=== PATIENT | female | born 1970 | race Caucasian/White ===

== ENCOUNTER 2016-11-18 09:54 | Day surgery (SDC) | payer MEDICARE, MEDICAID ==
[2016-11-18] VITALS (8 sets, daily range): BP systolic 102–139; BP diastolic 62–84; PULSE 71–82; RESP 14–19; O2SAT 93–99
[~2016-11-18] VITALS: Ht 177.8 cm; Wt 97.1 kg
[~2016-11-18 09:54] MED LIST: ACET1000 IR; ACET325T51 PO; ASCO100089 PO; Acetaminophen IV 1,000 mg IV ONE; BENEDRYL PO; BISA10EN RC; BO60S RECTAL; CHOL400T30 PO; CIDE600C PO; CRAN400T4 PO; DOCU-41 PO; FERR-83 PO; HYDR2TAB28 PO; IBUP-1827 PO; LACT460C PO; LEVO125T6 PO; Lactated Ringer's 1,000 ML IV SCH; MAGN400T4 PO; METH5TAB88 PO; METHENAMINE HIPPURATE PO; MULT-1018 PO; NYST1POW23 TOPICAL; OMEP20TA86 PO; OXYB10TA PO; PRED50TA PO; SENN8.6C6 PO; SENSICARE TP; SILV400C TP; VIT1TABL83 PO; VITAMIN E PO; [UNRECOGNIZED DRUG - OTHER] TP
[2016-11-18] MEDS ORDERED: Dexamethasone 4 mg/mL Inj ONE (09:55)
[2016-11-18] MEDS ORDERED: Propofol 10,000 mCg/mL 20 mL Inj ONE (09:55)
[2016-11-18] MEDS ORDERED: Ondansetron 2 mg/mL 2 mL Inj ONE (09:55)
--- NOTE | 2016-11-18 11:25 | PCM.HPANE ---
Patient Data Date of Service: Nov 18, 2016 Surgeon Admitting Provider: Attending Provider:Semaj Mccarthy MD Primary Care Physician:Uriah Grove MD Other Provider:Nazia Florentino Anesthesia Reason for Visit Calculus Of Kidney Ht/WT & BMI Height (Feet): 5 Height (Inches): 10 Weight (Kilograms): 94.34 Body Mass Index 29.00 Allergies Coded Allergies: onabotulinumtoxinA (Verified Allergy, Severe, caused kidney function issues, 01/01/16) oxycodone HCl (Verified Allergy, Severe, delirium /hallucinations, 01/01/16 ) silver (Verified Adverse Reaction, Intermediate, 02/10/16) blisters and redness Past Anesthesia History Anesthesia History: Positive for:: Anesthesia Reactions, Denies:: Abnormal Airway, Difficult Intubation, Fam Anesthesia Reaction, Fam Malignant Hypertherm, Malignant Hyperthermia Diabetes History Hx Diabetes?: No MRSA MRSA: No Medications Hypertension Medication: No Home Meds Incl Beta Kameron: No Active Scripts Belladonna Alkaloids/Opium (Belladonna-Opium 16.2-60 Supp)60 Mg Supp60 Mg RECTAL Q6 3 Days Prov:Nirav Chen DO 02/11/16 Reported Medications Nystatin 1 Each Powder.ea.60 Gr TOPICAL BID PRN east 02/10/16 Oxybutynin Chloride ER 10 Mg Tab.er.2410 Mg PO DAILY Ref 0 01/01/16 Cider Vinegar (Apple Cider Vinegar)600 Mg Vlzzqdj260 Mg PO TID 01/01/16 Vit B Comp/C/FA/Iron/Vit E (Vitamin B Complex Tablet)1 Each Tablet1 Each PO DAILY 12/26/15 Multivitamin (Multi Vitamin Daily)1 Each Tablet1 Each PO DAILY 30 Days Ref 0 12/26/15 Docusate Sodium (Colace)100 Mg Uqxcgvs370 Mg PO DAILY PRN For Constipation Ref 0 12/26/15 Cranberry Fruit (Cranberry)400 Mg Vbkqfh432 Mg PO DAILY 12/26/15 Bisacodyl (Bisacodyl Rectal)10 Mg/30 Ml Enema10 Mg RC DAILY 12/26/15 Acetaminophen 325 Mg Wbhkab070 Mg PO Q4H PRN For Pain Ref 0 12/26/15 Acetic Acid 1,000 Ml Irrig.soln30 Ml IR BID SUPRAPUBIC CATH 04/23/15 Lactobacillus Acidophilus (Florajen)460 Mg Opsmdwd695 Mg PO DAILY 04/23/15 [[employer] Butt Cream] No Conflict Check1 Applic TP TID PRN PRN 04/23/15 Ibuprofen 600 Mg Lmmmfp327 Mg PO TID PRN For Pain Ref 0 04/23/15 [Sensicare Oint] No Conflict Check1 Applic TP TID PRN PRN 04/23/15 [Benedryl] No Conflict Check25 Mg PO Q6H PRN PRN 04/23/15 Silver Sulfadiazine 400 Gm Cream..g.400 Gm TP BID PRN PRN 04/23/15 Sennosides (Senna)8.6 Mg Afdjtid68.2 Mg PO DAILY PRN 09/25/14 Omeprazole 20 Mg Tablet.dr20 Mg PO DAILY 30 Days 09/25/14 Methylphenidate 5 Mg Tablet2.5 Mg PO AM 30 Days Ref 0 09/25/14 Magnesium Oxide 400 Mg Dcvraa159 Mg PO DAILY 09/25/14 Levothyroxine 125 Mcg Uqdqdf439 Mcg PO DAILY For Thyroid Replacement #30 TABLET Ref 0 09/25/14 Hydromorphone 2 Mg Tablet2 Mg PO Q4 PRN For Pain Ref 0 09/25/14 Ascorbic Acid (Vitamin C)1,000 Mg Tab.chew2,000 Mg PO DAILY #30 TABLET Ref 0 09/25/14 Cholecalciferol (Vitamin D3) (Vitamin D)400 Unit Tablet2,800 Unit PO DAILY Ref 0 02/15/14 [Methanamine Lino] No Conflict Check1,000 Mg PO BID 12/19/13 Discontinued Reported Medications Prednisone (PredniSONE)50 Mg Rntxap63 Mg PO DAILY Ref 0 100mg PO daily x 3 days, then 50mg PO daily x 3 days, then 40mg PO daily x 3 days. 10/04/16 [Vitamin E] No Conflict Yifmk773 Unit PO DAILY 02/15/14 Ferrous Sulfate 325 Mg Wxgjoi937 Mg PO DAILY Ref 0 02/15/14 History History of ENT Problems?: Yes HEENT History: Positive for:: Cataracts (had surgery) Dysphagia (intermittent, r/t MS) TMJ (just noisy) Denies:: Abnormal Airway Difficult Intubation Hearing Problem Sinus Problem Hx of Heart Problems?: Yes Cardiovascular History: Positive for:: Edema Thrombophlebitis (hx of RUE DVT's post subdural hematoma) Denies:: AICD Abdominal Aortic Aneurism Atrial Fibrillation Cardiac Surgery Chest Pain Congestive Heart Failure Heart Murmur Hypertension Irregular Heartbeat Pacemaker Rheumatic Fever Valvular Heart Disease Other Cardiac History: seeing hematology for ITP- last platelet count 98, has appt am of surgery with Dr Yeboah Hx of Respiratory Problem?: Yes Respiratory History: Positive for:: Pneumonia (hx of) Pulmonary Embolism (Post surgery for intrathecal baclofen pump implantation in 2004) Denies:: Asthma COPD Chest Surgery Cough Dyspnea Emphysema Hemoptysis Oxygen Administration Tuberculosis Use of C-PAP Machine Other Resp Pertinent History: no dysphagia, no aspiration, no SOB Hx Neurologic Problems?: Yes Neurological History: Positive for:: Dizziness (intermittent) Headaches Multiple Sclerosis (with stem cell transplant 1999) Denies:: Alzheimer's Disease CVA Dementia Parkinson's Disease Seizures TIA Other Neurological Pertinent: cauda equina syndrome in a motorized wheelchair , ? cogitive dysfunction Hx of GI Problems?: Yes Gastrointestinal History: Positive for:: Heartburn Hx of Problems?: Yes Genitourinary History: Positive for:: Kidney Stones (right kidney stone current admission problem) Urinary Tract Infection (hx of recurrent infections- r/t neurogenic bladder) Denies:: HX of Hemodialysis Female Hx: Denies:: Currently Endometriosis Pelvic Inflammatory Problems with Breasts? Skin History: Positive for:: History Skin Disorders? (reddened areas- ) Pressure Ulcers (chronic right buttock wound- [facility]) Hx Musculoskeletal Problems?: Yes Musculoskeletal History: Positive for:: Back Injury Denies:: Degenerative Joint Joint Replacement Musculoskeletal Trauma Systemic Lupus Hx of Psycho/Social Problems?: Yes Psycho Social History: Positive for:: Hx Depression (hx of) Denies:: Suicide Attempt Hx Surgeries?: Yes (Stem cell transplant,intrathecal baclofen pump implantation , Crainiotomy,) Hx Any Other Health Problems?: Yes Other History: Positive for:: Hospitalization (KIDNEY STONES, SEPSIS, surgeries) Thyroid Disease (hypothyroid) Denies:: Cancer Endocrine Disease History Blood Transfusions: Positive for:: Blood Transfusions Denies:: Blood Transfuse Reaction Hx Diabetes: No Hx Alcohol Use: NoHx Substance Use: No Smoking Status: Never Smoker Have You Smoked inLast 12 mo: No Stop/Bang Treated for Sleep Apnea?: No Do You Have a CPAP Machine?: No S-Snoring: Do You Snore Loudly: No T-Tired: feel tired, fatigued: No O-Obsered: Observed not breath: No P-Blood Pressure: treated: No B- Body Mass Index > 35 kg/m2: Yes A- Age over 50: Yes N- Neck Large Circumference: No G- Gender Male: No ASHU Risk Assessment: Low Risk, <3 Yes Risk Assessment Category Category 1A: Patient has history of documented sleep apnea, and HAS NOT received any narcotic, sedative or anesthesia administration during this stay. Category 1B: Patient has history of documented sleep apnea, and HAS received any narcotic , sedative or anesthesia administration during this stay Category 2: Patient has SUSPECTED Obstructive Sleep Apnea, and HAS received any narcotic , sedative or anesthesia administration during this stay. Category 3: Patient has SUSPECTED Obstructive Sleep Apnea and HAS NOT received narcotic, sedative or anesthesia administration during this stay. Category 4: Outpatient in Procedural Areas with known sleep apnea or who screen positive for High Risk via the STOP/BANG questionnaire. Exam Exam General Appearance: Alert, Oriented X3, Cooperative, No Acute Distress HEENT/AIRWAY: MP 2, Neck Movement (short, thick, FROM), Mouth Opening (3), Other (TMD<3) Lungs: Diminished Heart: Exam Unremarkable, Regular Rate/Rhythm, Normal S1, Normal S2, No Murmurs /Rubs/Gallops Plan Impression Patient chart reviewed, patient interviewed and anesthestic plan with risks, benefits, and alternatives discussed, and informed consent obtained. NPO Status: MN ASA Physical Status: ASA3 Severe Disease Anesthetic Plan: GA Bene/Risks/Altern/Consents: Yes HP Complete Prior to Induction: Yes Taras Shields MD Nov 18, 2016 11:25
[2016-11-18 11:45] LABS: BASOPHILS % (AUTO) 0.3 % (0-3); EOSINOPHILS % (AUTO) 2.1 % (0-5); MONOCYTES % (AUTO) 7.4 % (4-12); Mean Corpuscular Hemoglobin 31.5 pg (27.0-35.0); Mean Corpuscular Volume 94.2 fL (81-100); Platelet Count 160 bil/L (150-400)
[2016-11-18] MEDS ORDERED: Lactated Ringer's 1,000 ML IV ONE (11:54)
--- NOTE | 2016-11-18 12:07 | DRSVH ---
PROCEDURE: X-RAY KUB ([id number]) INDICATIONS: STONES TECHNIQUE: One view of the abdomen acquired. COMPARISON: [facility], CR, XR ABDOMEN 1V SUPINE, 11/05/2016, 1:46 PM. Outside Film, C R, XR ABD AP 1VW, 11/05/2016, 13:46. [facility], CR, XR KUB, 07/01/2016, 10:07. FINDINGS: Surgical changes and devices: Neural stimulator pulse generator and lead redemonstrated. Bowel: Bowel gas pattern is normal. Soft tissues: 2 mm, 4 mm and a 7 mm calcification seen projected over the right kidney similar to enrique or CT scan. No additional definite renal calcifications seen. Bones: No suspicious bony lesions. IMPRESSION: 3 calcifications projected over the right kidney. Dictated by: Jaylen Land RRA Interpreted: Jeannette Rubio MD on 11/18/2016 at 12:03 Transcribed by: DANIEL on 11/18/2016 at 12:06 Approved by: Jeannette Rubio MD, PhD on 11/18/2016 at 17:25
[2016-11-18] MEDS ORDERED: Lactated Ringer's 1,000 ML IV SCH (13:03)
[2016-11-18] MEDS ORDERED: Lactated Ringer's 500 ML IV PRN (13:03)
[2016-11-18] MEDS ORDERED: Ondansetron 2 mg/mL 2 mL Inj IVPUSH PRN (13:05)
[2016-11-18] MEDS ORDERED: Dexamethasone 4 mg/mL Inj IVPUSH PRN (13:05)
[2016-11-18] MEDS ORDERED: Phenylephrine 10,000 mCg/mL Inj IVPUSH PRN (13:05)
[2016-11-18] MEDS ORDERED: EPHEDrine Sulfate 50 mg/mL Inj IVPUSH PRN (13:05)
[2016-11-18] MEDS ORDERED: fentaNYL-PF 50 mCg/mL 2 mL Inj IVPUSH PRN (13:05)
[2016-11-18] MEDS ORDERED: HYDROmorphone 1 mg/mL Inj IVPUSH PRN (13:05)
[2016-11-18] MEDS ORDERED: Furosemide 10 mg/mL 2 mL Inj IV ONE (13:30)
--- NOTE | 2016-11-18 14:23 | PCM.ANEP2 ---
Post Anesthesia Evaluation ASA/CMS Post Anesthesia VS in Patient's Normal Range?: Yes Resp Stable; Airway Patent?: Yes CV Function & Hydration Stable: Yes Mental Status Recovered?: Yes Pain control Satisfactory?: Yes N/V Control Satisfactory?: Yes Taras Shields MD Nov 18, 2016 14:23
--- NOTE | 2016-11-18 14:23 | PCM.ANEP1 ---
Post Anesthesia Phase 1 PACU Phase 1 Assessment Date of Service: Nov 18, 2016 Vital Signs Vital Signs Date Time Temp Pulse Resp B/P Pulse Ox O2 Delivery O2 Flow Rate FiO2 11/18/16 14:05 36.2 77 14 121/63 94 Room Air 11/18/16 13:59 77 17 125/63 95 Room Air 11/18/16 13:55 36.4 75 19 130/62 93 Room Air 11/18/16 13:45 36.2 71 16 102/72 99 Nasal Cannula 3 11/18/16 13:40 74 19 128/67 98 Nasal Cannula 3 11/18/16 13:30 138/79 11/18/16 13:28 36.2 139/84 11/18/16 11:18 36.2 82 14 117/78 97 Room Air Anesthetic Administered: GA Level of Alertness: Awake, talking DUFF's with Equal Strength: Yes Pain: No Pain Scale Score: 0 Nausea or Vomiting: No Oxygen Delivery: Simple Mask Lungs: Diminished Taras Shields MD Nov 18, 2016 14:23
--- NOTE | 2016-11-18 14:41 | OP ---
[address] [address] OPERATIVE REPORT PATIENT: SHANTELL GARCIA : 1970 MR#: [id number] ADMIT: 11/18/2016 JOB ID: [id number] DATE OF SURGERY: 11/18/2016 SURGEON: Semaj Mccarthy MD PREOPERATIVE DIAGNOSIS(ES): 1. Recurrent multiple calcium nephrolithiasis. 2. History of urinary tract infection urosepsis. POSTOPERATIVE DIAGNOSIS(ES): 1. Recurrent multiple calcium nephrolithiasis. 2. History of urinary tract infection urosepsis. OPERATION PERFORMED: ESWL (2500 shocks at maximum power level of 6.0). ANESTHESIOLOGIST: Taras Shields MD ANESTHESIA: General. PROCEDURE SUMMARY: The patient was positioned supine on the lithotripsy gurney and the above-described stone was localized in the X, Y and Z plane. Lithotripsy was then commenced at minimal power level and gradually increased to maximum power level. The stone and its fragments were relocalized numerous times throughout the case using C-arm radiography. The procedure was then terminated. The patient was awakened, transferred to the gurney and transferred to the recovery area awake in stable condition. The patient tolerated the procedure well.
== END 2016-11-18 23:59 | disposition home or self-care (01) ==
LOC: SAS 09:54
PROVIDERS: ATTEND Specialist
DX: N20.0 Calculus of kidney (principal); R13.10 Dysphagia, unspecified; R60.9 Edema, unspecified; R42 Dizziness and giddiness; R12 Heartburn; F32.9 Major depressive disorder, single episode, unspecified; Z79.899 Other long term (current) drug therapy
CPT/HCPCS: 36415; 50590; 74000; 85025; J0131; J1100; J1940; J2250; J2405; J7120